=== PATIENT | female | born 1970 | race Caucasian/White ===

== ENCOUNTER → 2016-07-15 | Outpatient (CLI) | payer BC ==
[2016-07-15 15:53] LABS: BASOPHILS # (AUTO) 0.13 10*3/UL; BASOPHILS % (AUTO) 1.3 % (0-1); HEMOGLOBIN 14.8 g/dL (12.0-16.0); LYMPHOCYTES # (AUTO) 2.35 10*3/uL; MEAN CORPUSCULAR HEMOGLOBIN 29.4 PG (27-31); MEAN CORPUSCULAR HGB CONC 33.6 g/dL (33-37); MEAN CORPUSCULAR VOLUME 87.3 FL (81-99); MEAN PLATELET VOLUME 9.2 FL (7.4-12.2); MONOCYTES # (AUTO) 0.99 10*3/UL (0.3-0.8); MONOCYTES % (AUTO) 9.9 % (5-15); NEUTROPHILS # (AUTO) 5.67 10*3/UL; NEUTROPHILS % (AUTO) 56.9 % (50-80); RED BLOOD COUNT 5.04 10^6/uL (4.20-5.40)
[2016-07-15 16:03] LABS: BLOOD UREA NITROGEN 16 mg/dL (7-22); CHOL/HDL RATIO 3.04 RATIO (0-4.0); EST GLOMERULAR FILTRATION > 60 (>60 ml/min/1.73m(2)); HDL CHOLESTEROL 45 mg/dL (40-150); SERUM ALBUMIN 3.9 g/dL (3.5-4.8); SERUM CHOLESTEROL 137 mg/dL (120-200)
[2016-07-15 16:23] LABS: FREE T4 (FREE THYROXINE) 1.3 ng/dL (0.93-1.71)
[2016-07-15 16:52] LABS: PLATELET MORPHOLOGY COMMENT NORMAL MORPHOLOGY (NORM); RBC MORPHOLOGY COMMENT NORMAL MORPHOLOGY (NORM); WBC MORPHOLOGY COMMENT NORMAL MORPHOLOGY (NORM)
== END ==
LOC: LAB 15:38
PROVIDERS: ATTEND Family Medicine
DX: E03.9 Hypothyroidism, unspecified (principal); K52.9 Noninfective gastroenteritis and colitis, unspecified; J45.909 Unspecified asthma, uncomplicated; K82.8 Other specified diseases of gallbladder
CPT/HCPCS: 36415; 80053; 80061; 82306; 84439; 84443; 85025

== ENCOUNTER → 2016-08-13 | Outpatient (CLI) | payer BC | LOC: MOB LAB 07:28 | PROVIDERS: ATTEND Physician Assistant | DX: N39.0 Urinary tract infection, site not specified (principal) | CPT/HCPCS: 87077; 87088; 87186 ==

== ENCOUNTER → 2016-09-07 | Outpatient (CLI) | payer BC, OTHER | LOC: MOB LAB 18:19 | PROVIDERS: ATTEND Physician Assistant | DX: N39.0 Urinary tract infection, site not specified (principal) | CPT/HCPCS: 87077; 87088; 87186 ==

== ENCOUNTER → 2016-10-21 | Outpatient (CLI) | payer BC ==
[2016-10-21 22:20] LABS: FREE T4 (FREE THYROXINE) 1.02 ng/dL (0.93-1.71)
== END ==
LOC: LAB 21:26
PROVIDERS: ATTEND Family Medicine
DX: E03.9 Hypothyroidism, unspecified (principal); E55.9 Vitamin D deficiency, unspecified
CPT/HCPCS: 36415; 82306; 84439; 84443

== ENCOUNTER 2017-11-03 12:15 | Observation (INO) ==
[2017-11-03] MEDS ORDERED: ONDANSETRON 4 MG/2 ML VIAL IVP ONE ×2 (12:41→19:34)
[2017-11-03] MEDS ORDERED: MORPHINE SULFATE 4 MG/1 ML IVP ONE ×2 (12:41→14:54)
[2017-11-03] MEDS ORDERED: Sodium Chloride 0.9% 1,000 ML PRIMARY IV ONE (12:41)
[2017-11-03 13:30] LABS: BASOPHILS # (AUTO) 0.06 10*3/UL; BASOPHILS % (AUTO) 0.3 % (0-1); EOSINOPHILS # (AUTO) 0.03 10*3/UL; EOSINOPHILS % (AUTO) 0.2 % (0-8); Hematocrit [HCT] 38.3 % (37.0-47.0); Hemoglobin [HGB] 13.2 g/dL (12.0-16.0); LYMPHOCYTES # (AUTO) 1.37 10*3/uL; MEAN CORPUSCULAR HEMOGLOBIN 30.2 PG (27-31); MEAN CORPUSCULAR HGB CONC 34.5 g/dL (33-37); MEAN CORPUSCULAR VOLUME 87.6 FL (81-99); MEAN PLATELET VOLUME 8.9 FL (7.4-12.2); MONOCYTES # (AUTO) 1.12 10*3/UL (0.3-0.8); MONOCYTES % (AUTO) 6.3 % (5-15); NEUTROPHILS # (AUTO) 15.24 10*3/UL; NEUTROPHILS % (AUTO) 85.2 % (50-80); RED BLOOD COUNT 4.37 10^6/uL (4.20-5.40)
[2017-11-03 13:47] LABS: BLOOD UREA NITROGEN 11 mg/dL (7-22); LIPASE 53 IU/L (23-300); SERUM ALBUMIN 3.3 g/dL (3.5-4.8)
[2017-11-03 13:51] LABS: BILIRUBIN,URINE NEGATIVE (NEG); CLARITY,URINE CLEAR (CLEAR); COLOR,URINE YELLOW (Y); GLUCOSE, URINE (UA) 250 mg/dL (NEG); OCCULT BLOOD,URINE Trace-intact (NEG); PROTEIN,URINE NEGATIVE (NEG); UROBILINOGEN,URINE 0.2 EU/dL (0.2)
[2017-11-03 13:56] LABS: PLATELET MORPHOLOGY COMMENT NORMAL MORPHOLOGY (NORM); RBC MORPHOLOGY COMMENT NORMAL MORPHOLOGY (NORM); WBC MORPHOLOGY COMMENT NORMAL MORPHOLOGY (NORM)
[2017-11-03 13:58] LABS: BACTERIA,URINE FEW; RBC,URINE 0-3 /hpf; SQUAMOUS EPITHELIAL CELL,UR FEW; URINE SAMPLE TYPE CLEAN CATCH URINE; WBC,URINE 0-3
--- NOTE | 2017-11-03 14:50 | DI ---
CT ABDOMEN SCAN WITH IV CONTRAST, 11/03/2017 12:42 PM : Clinical History: Abdominal pain. Previous Exam: 07/11/2015. Scans are performed from the lower lung bases through the liver and kidneys with IV contrast. 75 mL o f Isovue 300 was injected IV. No oral or rectal contrast was ordered. The lung bases are clear. There are multiple right hilar calcified nodes, and there is a calcified 10 mm granuloma in the right lower lobe. The liver is normal. The patient is status post cholecystectom y and the common bile duct measures 9 mm. There is no abnormality of the spleen, pancreas, and adrena l glands. Both kidneys are normal in size, shape, position and contour. There is no hydronephrosis or hydroureter. No renal or ureteral calculi are present. There are no abnormal retrocrural or periaort ic nodes. No ascites is present. READIN. Normal CT abdomen scan. 2. Old granulomatous disease manifested by calcifications in right hilar lymph nodes and by a 10 mm calcified granuloma in the right lower lobe. CT PELVIS SCAN WITH IV CONTRAST, 11/03/2017 12:42 PM: Clinical History: See above. Previous Exam: 07/11/2015. Scans are performed from just superior to the umbilicus to the symphysis pubis with IV contrast. This is the same bolus of contrast used for the CT scans of the abdomen. Scans through the lower abdomen and pelvis show no masses, enhancing lesions, or abnormal fluid colle ctions. There is no adenopathy. The appendix is not identified with certainty but there is no inflamm atory mass either in the cecum or in the right lower quadrant. 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 The remainder of the colon There are n o hernias. The patient is status post hysterectomy. There is an apparent cystic lesion measuring 20 m m in the right ovary most likely representing an ovarian cyst. The left ovary is normal. READIN. The cecum is abnormally dilated and has a transverse measurement approaching 11 cm in diameter. 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 2. Probable 20 mm cyst of the right ovary.
[2017-11-03] MEDS ORDERED: Ertapenem Inj 1 GM in Sodium Chloride 0.9% 100 ML IV ONE (15:09)
--- NOTE | 2017-11-03 15:56 | PDOC ---
HPI - History of Present Illness Date of Service: 11/03/17 Time of Service: 15:35 Chief Complaint: Right lower quadrant abdominal pain History of Present Illness: This is a 47-year-old female who developed right lower quadrant abdominal pain. The patient's pain started this morning progressively got worse. She states that is worsening she's had. She stated initially thought was gas pain takes Mylanta which no relief the pain. Patient given emergency department workup included a CBC which shows 17.7 white count with a left shift. Remainder of labs were unremarkable. Patient had a CT scan which shows 11 cm cecum. I do not identify the appendix. Patient is tachycardic with heart rate about 102. Past Medical History Surgical History: Laparoscopic cholecystectomy , low transverse Family History: Reviewed an Not Pertinent (Ulcerative Colitis) Tobacco Use: Never Smoker In the Past 12 Months, Have Used or Abuse Any of the Following Substance: None Additional Past Medical History Comments: History of asthma history of cataracts. Migraine, hypothyroidism Medication / Allergies Home Medications: Home Medications 3 Medication Instructions Recorded Confirmed Type Multivitamin [Daily Vitamin] 1 tab PO DAILY tab 04/20/13 11/03/17 History Cholecalciferol (Vitamin D3) 1 cap PO DAILY cap 08/13/16 11/03/17 History [Vitamin D3] albuterol sulfate HFA 90 1 - 2 puff INH Q4H PRN #1 inhaler 07/29/17 11/03/17 Rx mcg/actuation aerosol inhaler amitriptyline 75 mg tablet 75 mg PO QHS #30 tab 07/29/17 11/03/17 Rx fluticasone 110 mcg/actuation HFA 2 puff INH BID PRN #1 inh 07/29/17 11/03/17 Rx aerosol inhaler levothyroxine 112 mcg tablet 112 mcg PO DAILY #30 tab 07/29/17 11/03/17 Rx montelukast 10 mg tablet 10 mg PO DAILY #30 tab 07/29/17 11/03/17 Rx promethazine 25 mg tablet 25 mg PO Q4-6H PRN tab 10/27/17 11/03/17 History rizatriptan 10 mg tablet 10 mg PO ONCE PRN tab 10/27/17 11/03/17 History Allergies/Adverse Reactions: Allergies 3 Allergy/AdvReac Type Severity Reaction Status Date / Time adhesive Allergy Severe Blister Verified 11/03/17 12:25 latex Allergy Intermediate Blisters Verified 11/03/17 12:25 Review of Systems - Constitutional Constitutional: REPORTS: Negative System Review - Integumentary Integumentary: REPORTS: Negative System Review - Eye Exam Eye Exam: REPORTS: Negative System Review - Respiratory Respiratory: REPORTS: Other (History reactive airway disease, history of asthma) - Cardiovascular Cardiovascular: REPORTS: Negative System Review - Gastrointestinal Gastrointestinal / Abdominal: REPORTS: See HPI - Genitourinary Genitourinary: REPORTS: Other (History of urinary retention) - Musculoskeletal Musculoskeletal: REPORTS: Negative System Review - Neurological Neurologic: REPORTS: Negative System Review - Psychiatric Psychiatric: REPORTS: Negative System Review Exam - Vitals Vital Signs: Vital Signs Temperature 97.8 F Temperature Source Temporal Artery Scan Pulse Rate [Pulse Oximeter] 96 Respiratory Rate 18 Blood Pressure [Left Arm] 125/76 Pulse Ox 98 Oxygen Delivery Method Room Air Height 5 ft 5 in Weight 165 lb - General General Appearance: No Acute Distress, Cooperative - Head Head Exam: Normocephalic - Eye Eye Exam: POSITIVE: PERRL, EOMI - Neck Neck Exam: Full ROM - Respiratory Respiratory Exam: POSITIVE: Clear to Auscultation - Bilaterally, Breathing Non Labored - Cardiovascular Cardiovascular Exam: POSITIVE: RRR, No Murmur, No Clicks, No Gallops - GI/Abdominal GI/Abdominal Exam: POSITIVE: Normal Bowel Sounds, Distended, Guarding, Rebound, Hepatomegaly, Splenomegaly Additional GI/Abdominal Exam Details: Positive Rovsing sign - Rectal Rectal Exam: POSITIVE: Deferred Results - Labs CBC and BMP: 11/03/17 13:23 11/03/17 13:23 Assessment and Plan - Patient Problems (1) Right lower quadrant abdominal pain Current Visit: Yes Status: Acute Code(s): R10.31 - Right lower quadrant pain - Assessment / Plan Additional Assessment/Plan Details: Given the fact the patient has right lower quadrant on pain leukocytosis in the CT scan does show a dilated cecum I do think the patient is exploratory laparotomy. I believe the patient may have acute appendicitis with a dilated bowel this may be more and may require right colectomy. Is all explained to the patient she understands this. Patient also has rebound tenderness and positive Rovsing sign
[2017-11-03] MEDS ORDERED: diphenhydrAMINE 50 MG/1 ML VIAL IVP ONE (16:14)
[2017-11-03] MEDS ORDERED: IPRATROPIUM/ALBUTEROL SULFATE 3 ML NEB NEB ONE (16:14)
[2017-11-03] MEDS ORDERED: PROPOFOL 10 MG/1 ML (200 MG/20 ML) VIAL IV ONE (16:21)
[2017-11-03] MEDS ORDERED: MIDAZOLAM 5 MG/1 ML ONE (16:21)
[2017-11-03] MEDS ORDERED: LIDOCAINE MPF 2% - 5 ML (20 MG/1 ML) ONE (16:21)
[2017-11-03] MEDS ORDERED: fentaNYL Inj 250 MCG/5 ML VIAL ONE (16:21)
[2017-11-03] MEDS ORDERED: ROCURONIUM 10 MG/1 ML - 5 ML VIAL IVP ONE (16:21)
[2017-11-03] MEDS ORDERED: LIDOCAINE W/ SODIUM BICARB 0.5 ML SYR ONE (16:31)
[2017-11-03] MEDS ORDERED: KETAMINE 100 MG/1 ML - 5 ML ONE (16:59)
[2017-11-03] MEDS ORDERED: ONDANSETRON 4 MG/2 ML VIAL ONE (17:04)
[2017-11-03] MEDS ORDERED: DEXAMETHASONE PF 10 MG/1 ML VIAL ONE (17:05)
[2017-11-03] MEDS ORDERED: SUGAMMADEX SODIUM 200 MG/2 ML VIAL IV ONE (17:14)
[2017-11-03] MEDS ORDERED: KETOROLAC 30 MG/1 ML VIAL ONE (17:15)
[2017-11-03] MEDS ORDERED: BUPivacaine Liposome/PF (Exparel) Inj 20ml vial INFIL ONE (17:22)
[2017-11-03] MEDS ORDERED: Lactated Ringers 1,000 ML PRIMARY IV ONE (17:25)
[2017-11-03] MEDS ORDERED: Lactated Ringers 1,000 ML PRIMARY IV SCH (17:36)
[2017-11-03] MEDS ORDERED: HYDROmorphone 2 MG/1 ML IVP PRN (17:55)
[2017-11-03] MEDS ORDERED: Prochlorperazine Edisylate Inj 10mg/2ml vial IVP PRN (17:55)
[2017-11-03] MEDS ORDERED: MIDAZOLAM HCL 50 MG/10 ML VIAL IVP PRN (17:55)
[2017-11-03] MEDS ORDERED: LIDOCAINE W/ SODIUM BICARB 0.5 ML SYR SUBD PRN (17:55)
--- NOTE | 2017-11-03 17:55 | CRNA.PROGR ---
Anesthesia Time - - Start date: 11/03/17 End date: 11/03/17 - Procedure/Recovery Time Anesthesia : Time In: 16:41 Anesthesia : Time Out: 17:54 Anesthesia : Total Time: 73 - Total Anesthesia Time Total Anesthesia Time (minutes): 73 - Other Weight: 74.843 kg Height: 5 ft 5 in Body Mass Index (BMI): 27.4 Physical Status: P2 Anesthesia Type: General Anesthesia : ET
--- NOTE | 2017-11-03 17:55 | CRNA.PROGR ---
Anesthesia Recovery Phase I - Post Anesthesia Evaluation Patient's Condition on Arrival in Phase I: Stable Pain Level: 1
--- NOTE | 2017-11-03 18:04 | GEN.OPNOTE ---
Operative Note Surgery Date: 11/03/17 Preoperative Diagnosis: Right lower quadrant abdominal pain, dilated cecum, leukocytosis Postoperative Diagnosis: Acute appendicitis Procedure: Appendectomy Surgeon: Chava Browne MD Service Order Dispatcher: Hoang Neff MD Anesthesia Provider: Aime Boone CRNA Anesthesia Type: General Estimated Blood Loss (mL): 2 Fluids: Lactated Ringer's please see anesthesia notes in EMR. 1 g of Invanz given him preoperatively in the emergency department prior to going to surgery Pathology: Appendix Indications: Patient has acute onset of abdominal pain located in the right lower quadrant. She has leukocytosis. CT scan failed to find the appendix but I believe I saw what I thought was a dilated appendix. 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 Although colon was dilated it was not tense forearm and it was viable Operative Summary: Patient is brought in operative. Placed supine position. Given general tracheal synesthesia. Prepped draped sterile fashion. Timeout performed per protocols. Because of the possibility of needing to perform right colon resection for the dilated colon at 11 centimeter, I decided to do midline incision. I made a midline incision just below the umbilicus and carried up around the umbilicus. Hemostasis obtained with electrocautery. Opened the fascia in the midline using electrocautery. I then bluntly opened up the perineal space. At this point is able to identify a dilated hyperemic appendix that looked like he had some necrosis but not had perforated. There was a fecalith located within it. I then freed its peritoneal attachments using electrocautery. Clamp divided the mesoappendix. Tied off with 0 Vicryl sutures. I then clamped divided the appendix had off the surgical specimen. I tied the appendix with 0 Vicryl suture. Did a double tie. Did cauterize the tip to prevent mucocele. Irrigated until clear. I then closed posterior sheath with 0 Prolene Suture. We Irrigated the Subcutaneous Tissue. Infiltrated 20 ML of Exoprel for Postoperative Pain Control. Closed the Skin with Skin Sarah. Sterile Dressings Applied. Patient Tolerated Procedure Well the Were No Complications. Patient Problems - Patient Problem List (1) Right lower quadrant abdominal pain Current Visit: Yes Status: Acute Code(s): R10.31 - Right lower quadrant pain Category: Medical Procedure Codes - Surgical Procedures Primary Surgical Procedure: [id number] : Appendectomy
[2017-11-03] MEDS ORDERED: KETOROLAC 15 MG/1 ML VIAL IVP PRN (18:16)
[2017-11-03] MEDS ORDERED: HYDROcodone-APAP 7.5 MG-325 MG TABLET PO PRN (18:16)
[2017-11-03] MEDS ORDERED: NALOXONE 0.4 MG/1 ML VIAL IVP PRN (18:16)
[2017-11-03] MEDS ORDERED: ALBUTEROL SULFATE 8.5 GM HFA INHALER INH PRN (18:16)
[2017-11-03] MEDS ORDERED: FLUTICASONE HFA 110 MCG - 12 GM INHALER INH PRN (18:16)
[2017-11-03] MEDS ORDERED: MORPHINE SULFATE 2 MG/1 ML IVP PRN (18:16)
[2017-11-03] MEDS ORDERED: ONDANSETRON 4 MG/2 ML VIAL IVP PRN (18:16)
[2017-11-03] MEDS ORDERED: Non-Formulary Drug (Rizatriptan Benzoate [Maxalt] 10 MG) PO PRN (18:16)
[2017-11-03] MEDS ORDERED: AMITRIPTYLINE 25 MG TABLET PO SCH (21:00)
[2017-11-03] MEDS: Lactated Ringers 1,000 ML PRIMARY IV SCH (21:19)
[2017-11-03 22:24] VITALS: RESP 20
[2017-11-04 05:05] VITALS: O2SAT 94
--- NOTE | 2017-11-04 05:18 | PDOC ---
Abdomen/Flank HPI - General Chief Complaint: Abdomen Pain Stated Complaint: abd pain Date Seen by Provider: 11/03/17 Time Seen by Provider: 12:30 Source: POSITIVE: Patient, Spouse Exam Limitations: POSITIVE: No limitations Nurse's Notes Reviewed & Considered: Yes - History of Present Illness Initial Comments: The patient is a 47-year-old female. She presents to the emergency room with her . 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 She's had nausea but no vomiting. She took some Pepto-Bismol. She last ate approximately 12 hours SERVICE OFFICER. Patient states that her right lower abdominal pain has gotten progressively worse. No dysuria. No vomiting, hematemesis, melena, hematochezia, dysuria or hematuria. She is 3 para 3 abortus 0. She's had a hysterectomy and a cholecystectomy but still has her appendix. Body Location Affected: REPORTS: Abdomen Timing: REPORTS: Gradual, Getting Worse Duration: <24 hours (Approximately 9-1/2 hours SERVICE OFFICER) Severity: Moderate Quality: REPORTS: "Pain" Abdominal Pain Onset Location: REPORTS: RLQ Abdominal Pain Radiation: REPORTS: No radiation Context: REPORTS: None Modifying Factors: improves with: Palpation Associated Symptoms: REPORTS: Nausea Similar Symptoms Previously: No Recent Care Received: REPORTS: Denies Any Prior Injuries Related to Current Complaint?: No - Patient Home Medications Home Medications: Home Medications Multivitamin [Daily Vitamin] 1 tab PO DAILY tab 04/20/13 Cholecalciferol (Vitamin D3) [Vitamin D3] 1 cap PO DAILY cap 08/13/16 albuterol sulfate HFA 90 mcg/actuation aerosol inhaler 1 - 2 puff INH Q4H PRN # 1 inhaler 07/29/17 amitriptyline 75 mg tablet 75 mg PO QHS #30 tab 07/29/17 fluticasone 110 mcg/actuation HFA aerosol inhaler 2 puff INH BID PRN #1 inh 07/13 levothyroxine 112 mcg tablet 112 mcg PO DAILY #30 tab 07/29/17 montelukast 10 mg tablet 10 mg PO DAILY #30 tab 07/29/17 promethazine 25 mg tablet 25 mg PO Q4-6H PRN tab 10/27/17 rizatriptan 10 mg tablet 10 mg PO ONCE PRN tab 10/27/17 - Patient Allergies Allergies/Adverse Reactions: Allergies 3 Allergy/AdvReac Type Severity Reaction Status Date / Time adhesive Allergy Severe Blister Verified 11/03/17 12:25 latex Allergy Intermediate Blisters Verified 11/03/17 12:25 Past Medical History - heen HEENT History: Cataracts Cardiovascular History: Denies History Respiratory History: Asthma Gastrointestinal History: Gallbladder Disease Additional Gastrointestinal History: MESENTERIC ADENITIS 2013. IMAN 07/09/2015 Genitourinary History: Denies History Additional Genitourinary History: CT SHOWN STONE IN RIGHT KIDNEY AND CYST ON RIGHT KIDNEY Endocrine History: Hypothyroidism Musculoskeletal History: Denies History Prosthesis or Implant: No Neurological History: Migraines Blood Disorders: Anemia Psychiatric History: Denies History History of Sexually Transmitted Diseases: No Female Reproductive History: Hysterectomy Obstetrical History: Denies History Cancer History: Denies History In Past Year Been Physically Harmed or Verbally Threatened: No History of MDRO: No History of Other Communicable Diseases: No Tobacco Use: Never Smoker Alcohol Use: Rarely In the Past 12 Months, Have Used or Abuse Any Substance: None Previous Surgical History: Yes Type / Date of Surgery: C SECTION X 2/ CATARACT EXT/ COLONOSCOPY/ HYST/ TONSILLECTOMY/ TUBAL. IMAN 07/09/2015 Anesthesia Reactions: No Malignant Hyperthermia: No Significant Family History: Diabetes, Hypertension Past Medical History Reviewed: Reviewed - No Changes ROS - Limitations ROS Limitations: No Limitations Constitution: REPORTS: Denies Symptoms Cardiovascular: REPORTS: Denies Cardiac Symptoms Respiratory: REPORTS: Denies Resp Symptoms Neurological: REPORTS: Denies Neuro Symptoms Gastrointestinal: REPORTS: Abdominal Pain, Nausea Endocrine: REPORTS: Denies Symptoms Musculoskeletal: REPORTS: Denies MS Symptoms Genitourinary: REPORTS: Denies Symptoms Eyes: REPORTS: Denies Symptoms ENT: REPORTS: Denies Symptoms Skin: REPORTS: Denies Skin Symptoms Lympathic: REPORTS: Denies Lympathic Symptoms Immunologic: POSITIVE: Denies Symptoms Psychiatric: POSITIVE: Denies Psych Symptoms Abdominal/Flank Pain PE - General Appearance General Appearance: POSITIVE: Alert, Cooperative, No Acute Distress, No Evidence of Trauma - HEENT HEENT: POSITIVE: Head Inspection Nml, Eyes Inspection Nml, Ears Inspection Nml, Nose Inspection Nml, Oral/Dental Inspect. Nml, Pharynx Inspect. Nml, PERRL, EOMI - Neck Neck: POSITIVE: Normal Inspection, No Apparent Injury - Respiratory Respiratory: POSITIVE: No Respiratory Distress, Breath Sounds Normal, Chest Non- Tender - Cardiovascular Cardiovascular: POSITIVE: Regular Rate and Rhythm, Heart Sounds Normal, Equal Pulses, Strong Pulses Peripheral Pulses: Radial (R): 2+, Radial (L): 2+ - Chest Chest: POSITIVE: Non Tender - Abdomen Abdomen: Soft: (LLQ), (LUQ), (RUQ), Normal Bowel Sounds: (All Quadrants), Denies Tenderness: (LUQ), (RUQ), No Splenomegaly: (All Quadrants), No Hepatomegaly: (All Quadrants), No Guarding: (All Quadrants), No Rebound: (All Quadrants), No Palpable Pulse: (All Quadrants), No Palpabale Mass: (All Quadrants), No Distention: (All Quadrants), No Rigidity: (All Quadrants), Tenderness Noted: (RLQ), (LLQ) Additional Abdominal Details: Abdominal examination shows bowel sounds be present, but probably somewhat depressed. Patient has pain on palpation right lower quadrant, and, less so, left lower quadrant. There is some rebound. No masses, or organomegaly. - Back Back: POSITIVE: Normal Inspection. NEGATIVE: CVA Tenderness (R), CVA Tenderness (L) - Skin Skin: POSITIVE: Intact, Normal For Race, Warm, Dry, No Rash - Extremities Extremity: Non-Tender: (All Extremities), Normal ROM: (All Extremities), Normal Inspection: (All Extremities) - Neurological Neurological: POSITIVE: Affect Apporpriate, Oriented X3, social research assistant Normal As Tested, Motor Normal, Sensation Normal - Psychological Psychiatric: POSITIVE: Affect Appropriate, Mood Appropriate Images - Complete Complete: 1 - Area of abdominal pain Abdomen Progress - Results Reviewed by me Xrays/CTs/US Reviewed by me: Yes Discussed with Radiologist: Yes Radiology Findings: CT scan abdomen and pelvis with IV contrast read by radiologist as showing a dilated cecum with transverse diameter 11 cm. Right ovarian cyst. Appendix not identified with certainty. Lab Results Reviewed by Me: Yes (urinalysis normal; amylase and lipase normal) CBC and BMP: 11/03/17 13:23 11/03/17 13:23 Lab Results:: Laboratory Results 3 11/03/17 11/03/17 11/03/17 13:23 13:23 13:43 WBC 17.87 H RBC 4.37 Hgb 13.2 Hct 38.3 MCV 87.6 MCH 30.2 MCHC 34.5 RDW Std Deviation 40.5 RDW Coeff of [place] 12.8 Plt Count 300 MPV 8.9 Immature Gran % (Auto) 0.3 Neut % (Auto) 85.2 H Lymph % (Auto) 7.7 L [place] % (Auto) 6.3 Eos % (Auto) 0.2 Baso % (Auto) 0.3 Immature Gran # (Auto) 0.05 Neut # (Auto) 15.24 Lymph # (Auto) 1.37 [place] # (Auto) 1.12 H Eos # (Auto) 0.03 Baso # (Auto) 0.06 WBC Morphology Comment Normal morphology Plt Morphology Comment Normal morphology RBC Morph Comment Normal morphology Sodium 133 L Potassium 3.9 Chloride 103 Carbon Dioxide 20 L Anion Gap 10 BUN 11 Creatinine 0.4 L Estimated GFR > 60 BUN/Creatinine Ratio 27.50 H Glucose 121 H Calculated Osmolality 275.0 Calcium 8.1 L Total Bilirubin 0.3 AST 20 ALT 36 Alkaline Phosphatase 81 Total Protein 6.1 Albumin 3.3 L Globulin 2.8 Albumin/Globulin Ratio 1.10 L Amylase 44 Lipase 53 Ur Collection Type Clean catch urine Urine Color Yellow Urine Clarity Clear Urine pH 6.0 Ur Specific [place] 1.015 Urine Protein Negative Urine Glucose (UA) 250 Urine Ketones Trace A Urine Occult Blood Trace-intact H Urine Nitrate Negative Urine Bilirubin Negative Urine Urobilinogen 0.2 Ur Leukocyte Esterase Negative Urine RBC 0-3 Urine WBC 0-3 Ur Squamous Epith Cells Few Ur Renal Epithelial Cell None Urine Crystals None Urine Bacteria Few Urine Casts None Urine Mucus Few Urine Trichomonas None Urine Yeast None Ur Culture Indicated? Culture not set - Patient's Progress Pain Medication Addressed: POSITIVE: Yes (Patient medicated with morphine sulfate IV) School/Work Release Addressed: POSITIVE: Not Applicable Re-examine Time: 14:50 Re-Examine Comment: Results of laboratory studies and CT scan reviewed with patient and . Advised that I believe she could have an acute abdomen and need a surgical consult. Case discussed with Dr. Hargrove, who will come to the emergency room to further evaluate. Status: POSITIVE: Unchanged, Re-Examined - Consult Consult (If Yes, Name of Consulting MD & Time Called): Yes (Dr. Hargrove, surgeon [id number],) Consulting MD will see pt:: POSITIVE: In ED, [facility] [place] Admit Counseled: POSITIVE: Patient, Family, RE: Lab Results, RE: Radiology Results, RE : DX, RE: Need for F/U Patient Care Time - Estimated PCT Patient Care Time (In Minutes): 60 Vital Signs - Recent Vital Signs Vital Signs: Vital Signs (Last 8 hours) Temp Pulse Resp BP Pulse Ox 11/04/17 05:04 97.2 F 94 109/55 94 11/04/17 00:15 97.5 F 103 H 20 116/69 93 - VS Reviewed Vital Signs Reviewed: Yes Discharge Clinical Impression: Abdominal pain Discharge Disposition: Transferred to OR Condition: Fair Care Transferred To: Date Decision to Admit to Inpatient: 11/03/17 Time Decision to Admit to Inpatient: 15:05
[2017-11-04 05:20] LABS: BASOPHILS # (AUTO) 0.01 10*3/UL; BASOPHILS % (AUTO) 0.1 % (0-1); EOSINOPHILS # (AUTO) 0 10*3/UL; EOSINOPHILS % (AUTO) 0 % (0-8); Hematocrit [HCT] 38.3 % (37.0-47.0); LYMPHOCYTES # (AUTO) 1.04 10*3/uL; MEAN CORPUSCULAR HEMOGLOBIN 29.7 PG (27-31); MEAN CORPUSCULAR HGB CONC 33.9 g/dL (33-37); MEAN CORPUSCULAR VOLUME 87.6 FL (81-99); MEAN PLATELET VOLUME 9.5 FL (7.4-12.2); MONOCYTES # (AUTO) 0.42 10*3/UL (0.3-0.8); MONOCYTES % (AUTO) 2.8 % (5-15); NEUTROPHILS # (AUTO) 13.71 10*3/UL; NEUTROPHILS % (AUTO) 90.1 % (50-80); RED BLOOD COUNT 4.37 10^6/uL (4.20-5.40)
[2017-11-04] MEDS ORDERED: LEVOTHYROXINE 112 MCG TABLET PO SCH (05:30)
[2017-11-04 05:31] LABS: PLATELET MORPHOLOGY COMMENT NORMAL MORPHOLOGY (NORM); RBC MORPHOLOGY COMMENT NORMAL MORPHOLOGY (NORM); WBC MORPHOLOGY COMMENT NORMAL MORPHOLOGY (NORM)
[2017-11-04] MEDS: Lactated Ringers 1,000 ML PRIMARY IV SCH (05:38)
[2017-11-04 08:43] VITALS: BP 109/68; TEMP 98.1
[2017-11-04] MEDS ORDERED: Montelukast Tab 10 MG TAB PO SCH (09:00)
--- NOTE | 2017-11-04 12:23 | DCSUMMARY ---
Discharge Summary Admit Date: 11/03/17 Discharge Date: 11/04/17 Admitting Diagnosis: acute abdominal pain leukocytosis and large cecum Discharge Diagnosis: Acute appendicitis Primary Surgery and Date: Appendectomy on 11/03/2017 Hospital Course: Patient is taken in surgery for acute abdominal pain leukocytosis and a large cecum. She 100 diagnostic laparoscopy which showed that she had acute appendicitis. The appendix was necrotic and not ruptured. SHe had a fecalith within it. She underwent an appendectomy without any problems. First postoperative day she is feeling fine passing gas. She is able to discharged home. All up in 1 week's time. Exam - Vitals Vital Signs: Vital Signs Temperature 98.1 F Temperature Source Temporal Artery Scan Pulse Rate [Pulse Oximeter] 100 Pulse Rate 101 Respiratory Rate 20 Blood Pressure [Left Arm] 109/68 Blood Pressure 130/73 Pulse Ox 94 Oxygen Flow Rate 1 Oxygen Delivery Method Room Air Height 5 ft 5 in Weight 165 lb 6.4 oz - General General Appearance: No Acute Distress, Cooperative - GI/Abdominal GI/Abdominal Exam: POSITIVE: Non Tender, Non Distended, Soft Patient Problems - Patient Problem List (1) Right lower quadrant abdominal pain Current Visit: Yes Status: Acute Code(s): R10.31 - Right lower quadrant pain Category: Medical
--- NOTE | 2017-11-04 13:24 | CRNA.PROGR ---
Anesthesia Note - Progress Notes Anesthesia Progress Note: Sitting up in chair, ready to be dismissed home. She denies headache, sore throat. States her pain has been controlled. Vomited once just after Operating room, but none further. Vital Signs - Last Taken Temperature 98.1 F 11/04/17 08:42 Pulse Rate 100 11/04/17 08:42 Respiratory Rate 20 11/04/17 08:42 Blood Pressure 109/68 11/04/17 08:42 Pulse Ox 94 11/04/17 08:42 No apparent anesthetic difficulties.
== END 2017-11-04 13:25 | disposition home or self-care (01) ==
LOC: ER 12:15 → OPS 15:51 → INTOOBSV 15:51 → MED/SURG 18:14
PROVIDERS: ADMIT Surgery; ATTEND Surgery